=== PATIENT | female | born 1975 | race African-American/Black ===

== ENCOUNTER 2019-02-07 21:44 | Emergency (ER) | payer BC, OTHER ==
[2019-02-07] MEDS: IBUPROFEN 200 MG TAB PO (23:59)
[2019-02-07] MEDS: ONDANSETRON (ODT) 4 MG TAB ODT (23:59)
[2019-02-08] MEDS: ONDANSETRON (ODT) 4 MG TAB ODT (00:13)
[2019-02-08] MEDS: DEXAMETHASONE 10 MG/ML 1 ML INJ PO (00:24)
== END 2019-02-08 00:45 | disposition home or self-care (01) ==
LOC: FTE 02-08 00:45
DX: J02.9 Acute pharyngitis, unspecified (principal)
CPT/HCPCS: 99283